=== PATIENT | female | born 1990 | race Caucasian/White ===

== ENCOUNTER 2017-06-10 13:41 | Inpatient (IN) | payer OTHER ==
[2017-06-10] VITALS (12 sets, daily range): BP systolic 116–152; BP diastolic 55–108
[~2017-06-10] VITALS: Ht 170.2 cm; Wt 97.0 kg
[~2017-06-10 13:41] MED LIST: MACROBID100 MG PO
[2017-06-10 14:29] LABS: BASOPHIL (%) 0.2 % (0-1); EOSINOPHIL (%) 0.4 % (0-5); EOSINOPHIL COUNT 0.1 K/uL (0-0.3); HEMATOCRIT 32.3 % (36.0-46.0); HEMOGLOBIN 10.1 G/DL (11.9-15.5); IMMATURE GRANULOCYTE (%) 0.7 % (0.0-0.7); LYMPHOCYTE (%) 8.8 % (15-42); LYMPHOCYTE COUNT 1.2 K/uL (1.0-2.8); MCH 25.9 PG (29.0-34.0); MCHC 31.3 G/DL (30.0-36.0); MCV 82.8 FL (83-99); NEUTROPHIL (%) 82.9 % (45-76); NEUTROPHIL COUNT 11.5 K/uL (1.8-6.4); PLATELET COUNT 447 K/uL (156-360); RBC DIS.WIDTH-CV 15.9 % (11.8-14.6); RBC DIS.WIDTH-SD 47.8 % (39-53); WHITE BLOOD COUNT 13.8 K/uL (4.1-10.2)
[2017-06-10] MEDS ORDERED: PRENATAL TABLE1 EACH PO (14:31)
[2017-06-10 15:42] LABS: AMPHETAMINE NEGATIVE (500 ng/mL); BARBITURATES NEGATIVE (200 ng/mL); BENZODIAZEPINES NEGATIVE (150 ng/mL); BUPRENORPHINE NEGATIVE (10 ng/mL); COCAINE NEGATIVE (150 ng/mL); METHADONE NEGATIVE (200 ng/mL); METHAMPHETAMINE NEGATIVE (500 ng/mL); OPIATES (MORPHINE) NEGATIVE (100 ng/mL); OXYCODONE NEGATIVE (100 ng/mL); PHENCYCLIDINE NEGATIVE (25 ng/mL); PROPOXYPHENE NEGATIVE (300 ng/mL); THC CANNABINOIDS NEGATIVE (50 ng/mL); TRICYCLIC ANTIDEPRESSANTS NEGATIVE (300 ng/mL)
[2017-06-11] VITALS (7 sets, daily range): BP systolic 105–143; BP diastolic 56–73
[2017-06-11 07:02] LABS: BASOPHIL (%) 0.3 % (0-1); BASOPHIL COUNT 0.1 K/uL (0-0.1); EOSINOPHIL (%) 0.1 % (0-5); HEMATOCRIT 29.6 % (36.0-46.0); HEMOGLOBIN 9.1 G/DL (11.9-15.5); IMMATURE GRANULOCYTE (%) 0.7 % (0.0-0.7); LYMPHOCYTE (%) 11.6 % (15-42); MCH 25.9 PG (29.0-34.0); MCHC 30.7 G/DL (30.0-36.0); MCV 84.1 FL (83-99); MONOCYTE (%) 7.9 % (3-12); MONOCYTE COUNT 1.3 K/uL (0-0.8); NEUTROPHIL (%) 79.4 % (45-76); NEUTROPHIL COUNT 13.4 K/uL (1.8-6.4); PLATELET COUNT 377 K/uL (156-360); RBC DIS.WIDTH-CV 15.9 % (11.8-14.6); RBC DIS.WIDTH-SD 48.8 % (39-53); RED BLOOD COUNT 3.52 M/uL (3.80-5.20); WHITE BLOOD COUNT 16.8 K/uL (4.1-10.2)
[2017-06-12 03:19] VITALS: BP 126/66
[2017-06-12 07:35] VITALS: BP 116/56
[2017-06-12 11:23] VITALS: BP 128/60
[2017-06-12 14:55] VITALS: BP 138/63
[2017-06-13 07:45] VITALS: BP 123/63
[2017-06-13 12:29] VITALS: BP 142/67
[2017-06-13 14:46] VITALS: BP 127/60
[2017-06-13 19:00] VITALS: BP 132/64
[2017-06-13 23:00] VITALS: BP 132/72
[2017-06-14 03:00] VITALS: BP 113/60
[2017-06-14] MEDS ORDERED: ENDOCET 5-3251 EACH PO (08:28)
[2017-06-14] MEDS ORDERED: FERROUS SULFAT325 MG PO (08:28)
[2017-06-14] MEDS ORDERED: IBUPROFEN800 MG PO (08:28)
== END 2017-06-14 17:31 | disposition home or self-care (01) | DRG 765 ==
LOC: LDRP-OP 13:41 → 2WEST 13:42 → LDRP-OP 06-30 09:05
PROVIDERS: Advanced Practice Midwife; Obstetrics & Gynecology
DX: O48.0 Post-term pregnancy (principal); F33.9 Major depressive disorder, recurrent, unspecified; Z37.0 Single live birth; Z3A.41 41 weeks gestation of pregnancy; O65.8 Obstructed labor due to other maternal pelvic abnormalities; O62.1 Secondary uterine inertia; O62.0 Primary inadequate contractions; O99.344 Other mental disorders complicating childbirth; F17.210 Nicotine dependence, cigarettes, uncomplicated; O99.334 Smoking (tobacco) complicating childbirth; F41.9 Anxiety disorder, unspecified; O69.81X1 Labor and delivery complicated by cord around neck, without compression, fetus 1; O61.0 Failed medical induction of labor
CPT/HCPCS: 85025; 86850; 86900; 86901; 88307; 90686; C1755; J0690; J2175; J2274; J2405; J3010; J7120